=== PATIENT | male | born 1955 | race Hispanic/Latino ===

== ENCOUNTER 2022-02-27 09:26 | Inpatient (IN) | payer BC, MEDICARE ==
[2022-02-27] MEDS ORDERED: VERAPAMIL 5 MG/2 ML INJ ONE (09:33)
[2022-02-27] MEDS ORDERED: NITROGLYCERIN SYRINGE 0 ML ONE (09:33)
[2022-02-27] MEDS ORDERED: HEPARIN/NS 5000 UNIT/500ML 500 ML IR ONE (09:33)
[2022-02-27] MEDS ORDERED: HEPARIN 10,000 UNITS/10 ML VIAL ONE (09:33)
[2022-02-27] MEDS ORDERED: LIDOCAINE PF 100 MG/5 ML (CARDIAC SYRINGE) IV ONE ×2 (09:33→11:30)
[2022-02-27] MEDS ORDERED: ATROPINE 0.1% (1 MG/10 ML) CARDIAC SYRINGE ONE ×2 (09:33→11:30)
[2022-02-27] MEDS ORDERED: PHENYLEPHRINE/NS 1,000 MCG/10 ML SYRINGE (OR USE) IV ONE (09:33)
[2022-02-27] MEDS ORDERED: LIDOCAINE (2%) 20 MG/1 ML VIAL 20 ML MDV INFILTRATI ONE (09:33)
[2022-02-27] MEDS ORDERED: EPINEPHrine 1 MG/10 ML SYRINGE ONE ×3 (09:33→11:30)
[2022-02-27] MEDS ORDERED: SODIUM CHLORIDE 0.9% 1000 ML 1,000 ML IV ONE ×3 (09:44)
--- NOTE | 2022-02-27 09:50 | Emergency Department Report ---
HPI - General Time Seen by Provider: 02/27/22 09:43 - HPI HPI: Room 18 The patient is a 66-year-old male presenting in cardiac arrest. Per EMS the patient was picked up complaining of abdominal pain and during transport went unresponsive. Patient was found to be in PEA and ACLS protocols were initiated. Upon arrival to the ED the patient was intubated by myself using the glide scope. There was a copious amount of black liquid present in oropharynx that required frequent suctioning. After intubation ACLS protocols were continued with eventual return of spontaneous circulation. O- blood was ordered during resuscitation given suspicion for upper GI bleeding. EMS initially called the patient in as a STEMI prior to arrival. EMS reports they sent an EKG however it did not come through so a code STEMI was called prior to the patient's arrival. This was canceled after resuscitation. When family arrives they state that the patient was his normal self 2 days ago until later that evening when he said he was not "feeling good." Patient did not give any specific complaints but states he felt "beat up." Family states the patient began to complain of abdominal p ain and so he was sipping Coca-Cola yesterday and some this morning. Yesterday the patient continued to moan ED Past Medical Hx - Surgical History Additional Surgical History: Bowel perforation leading to bowel resection colostomy reversal. - Family History Family history: no significant - Social History Smoking Status: Current Some Day Smoker Substance Use Type: Alcohol ED Review of Systems ROS: Stated complaint: CARDIAC ARREST Other details as noted in HPI Comment: Unobtainable due to pts medical conditions Physical Exam - Physical Exam Physical Exam: GENERAL: The patient is well-developed well-nourished male lying on stretcher receiving chest compressions from EMS black liquid pouring from his mouth. [] HEENT: Normocephalic. Atraumatic. Oropharynx filled with [place] NECK: Supple. Trachea midline CHEST/LUNGS: No spontaneous respirations. Breath sounds equal bilaterally with bagging after intubation by myself HEART/CARDIOVASCULAR: Initially no heart sounds with asystole on the monitor but normal sinus rhythm after ROSC ABDOMEN: Abdomen is soft. Ventral hernia SKIN: There is no rash. There is no edema. There is no diaphoresis. NEURO: GCS 3 T MUSCULOSKELETAL: There is no evidence of acute injury. RECTAL: Guaiac negative light brown stool ED Course - Consultations Consultation #1: 02/27/22 09:46 GI paged 02/27/22 09:54 Case discussed with node js developer Dr. Polo. good [facility] ED Medical Decision Making - Lab Data Result diagrams: 02/27/22 10:15 02/27/22 10:15 - Radiology Data Radiology results: report reviewed (Chest x-ray), image reviewed (Chest x-ray) interpreted by me: Chest [id number] upper lobe opacities. No pneumothorax. Likely aspiration. [facility] [address] [place] [address] XRay Report Signed Patient: GIA BRIZUELA MR#: [id number] : 1955 Acct:[id number] Age/Sex: 66 / M ADM Date: 02/27/22 Loc: ED Attending Dr: Ordering Physician: ENRIQUE HASSAN MD Date of Service: 02/27/22 Procedure(s): XR chest 1V ap Accession Number(s): [id number] cc: ENRIQUE HASSAN MD Fluoro Time In Minutes: CHEST 1 VIEW 02/27/2022 9:29 AM INDICATION / CLINICAL INFORMATION: Status post cardiac arrest/intubation. COMPARISON: None available. FINDINGS: SUPPORT DEVICES: There is expected positioning of an ET tube with the tip located 6 cm above the harinder. An esophagogastric tube is present with the most distal visualized portion projecting over the gastric fundus. The tip of that tube is not seen. HEART / MEDIASTINUM: No significant abnormality. LUNGS / PLEURA: There are generalized bilateral airspace opacities. No significant pleural effusion. No pneumothorax. ADDITIONAL FINDINGS: No significant additional findings. IMPRESSION: 1. Bilateral airspace opacities are favored to represent edema. Aspiration is also a consideration. 2. Additional findings as above. Signer Name: Robe Mendez MD Signed: 02/27/2022 10:31 AM Workstation Name: [id number] Transcribed By: WILLIE Dictated By: Robe Mendez MD Electronically Authenticated By: Robe Mendez MD Signed Date/Time: 02/27/22 1031 DD/ 1030 TD/TT: - Differential Diagnosis GI bleed, aspiration Critical Care Time: Yes Critical care time in (mins) excluding proc time.: 30 Critical care attestation.: If time is entered above; I have spent that time in minutes in the direct care of this critically ill patient, excluding procedure time. ED Disposition Clinical Impression: Cardiac arrest, Aspiration into airway Disposition: ADMITTED INPATIENT Is pt being admited?: Yes Does the pt Need Aspirin: No Condition: Serious Time of Disposition: 11:30 (Care transferred to hospitalist (Dr. Gamble))
--- NOTE | 2022-02-27 10:09 | Gastroenterology Consultation ---
History of Present Illness - Reason for Consult Consult date: 02/27/22 GI bleed Requesting physician: ENRIQUE HASSAN - History of Present Illness Unable to obtain history as patient is intubated and not responsive No history in chart When I was starting to examine patient, he lost his pulse and therefore I had to move out of the way so CPR can be initiated Obtained/updated/reviewed patient's current medications Medical history, surgical history, social history, allergies, home medications family history -unknown Medications and Allergies Allergies Allergy/AdvReac Type Severity Reaction Status Date / Time Unable to Assess Allergy Verified 02/27/22 10:11 Active Meds: Active Medications Sodium Chloride (Nacl 0.9% 1000 Ml) 1,000 mls @ 999 mls/hr IV ONCE ONE Stop: 02/27/22 10:44 Sodium Chloride (Nacl 0.9% 1000 Ml) 1,000 mls @ 999 mls/hr IV ONCE ONE Stop: 02/27/22 10:44 Sodium Chloride (Nacl 0.9% 1000 Ml) 1,000 mls @ 999 mls/hr IV ONCE ONE Stop: 02/27/22 10:44 Review of Systems - Review of Systems ROS unobtainable: due to endotracheal tube, due to mental status Exam - Constitutional General appearance: other - Respiratory Respiratory effort: other - Cardiovascular Rhythm: other (lost pulse during exam) - Gastrointestinal General gastrointestinal: Present: distended - Neurologic Neurological: other (intubated, not responsive) - Labs CBC & Chem 7: 02/27/22 10:15 02/27/22 10:15 Assessment and Plan I examined the output from the gastric tube, it is dark brown. No blood, does not appear to be an active GI bleed on my exam. Additionally there is no melena per nurses therefore I do not suspect primary GI blood loss as a source of symptoms. Still awaiting labs imaging etc. Prudent to have patient on PPI drip just in case I will continue to follow with you - Patient Problems (1) Coffee ground emesis Current Visit: No Status: Acute
[2022-02-27] MEDS ORDERED: NORepinephrine/NS 8 MG-250 ML 8 MG/250 ML INFUS..BTL IV ONE ×2 (10:19)
[2022-02-27] MEDS ORDERED: PANTOPRAZOLE 40 MG INJ IV ONE (10:24)
[2022-02-27 10:34] LABS: ABG Base Excess -17.7 mmol/L (-2.0-3.0); ABG HCO3 14.9 mmol/L (20.0-26.0); ABG Methemoglobin 0.5 % (0.0-1.5); ABG Oxygen Saturation 99.4 % (95.0-99.0); ABG PCO2 68.2 mm Hg
--- NOTE | 2022-02-27 10:36 | XRay Report ---
CHEST 1 VIEW 02/27/2022 9:29 AM INDICATION / CLINICAL INFORMATION: Status post cardiac arrest/intubation. COMPARISON: None available. FINDINGS: SUPPORT DEVICES: There is expected positioning of an ET tube with the tip located 6 cm above the niraj na. An esophagogastric tube is present with the most distal visualized portion projecting over the ga stric fundus. The tip of that tube is not seen. HEART / MEDIASTINUM: No significant abnormality. LUNGS / PLEURA: There are generalized bilateral airspace opacities. No significant pleural effusion. No pneumothorax. ADDITIONAL FINDINGS: No significant additional findings. IMPRESSION: 1. Bilateral airspace opacities are favored to represent edema. Aspiration is also a consideration. 2. Additional findings as above. Signer Name: Robe Mendez MD Signed: 02/27/2022 10:31 AM Workstation Name: [email or web address]
[2022-02-27 10:39] LABS: Hematocrit 41.3 % (35.5-45.6); Mean Corpuscular HGB Conc 32 % (32-34); Mean Corpuscular Volume 97 fl (84-94); Red Blood Count 4.24 M/mm3 (3.65-5.03); Red Cell Distribution Width 14.5 % (13.2-15.2)
[2022-02-27 10:42] LABS: INR 1.98 (0.87-1.13)
[2022-02-27] MEDS ORDERED: PIPERACIL/TAZOBACTA 4.5/NS 100 4.5 GM/100 ML VIAL IV ONE (10:48)
[2022-02-27 10:49] LABS: Creatine Kinase MB 4.6 ng/mL (0.0-4.0)
[2022-02-27 10:51] LABS: Albumin 1.9 g/dL (3.9-5); Calcium 7.8 mg/dL (8.4-10.2)
[2022-02-27 10:52] LABS: Partial Thromboplastin Time 78.8 Sec. (24.2-36.6)
[2022-02-27 10:59] LABS: ABG PH 6.957 pH Units (7.350-7.450); ABG PO2 333.1 mm Hg (80.0-90.0)
[2022-02-27] MEDS ORDERED: PANTOPRAZOLE 80 MG in SODIUM CHLORIDE 0.9% 100 ML IV SCH (11:00)
[2022-02-27] MEDS ORDERED: SODIUM BICARB 8.4% 50 MEQ/50 ML SYRINGE IV ONE ×3 (11:01→11:30)
[2022-02-27] MEDS ORDERED: DOPamine 800 MG/D5W 250ML 800 MG/250 ML BAG IV ONE (11:29)
[2022-02-27] MEDS ORDERED: CALCIUM CHLORIDE 1,000 MG/10 ML SYRINGE IV ONE ×2 (11:30)
[2022-02-27] MEDS ORDERED: AMIODARONE 150 MG/3 ML INJ IV ONE (11:30)
[2022-02-27 11:41] LABS: Band Neutrophils # (Manual) 1.4 K/mm3; Basophils % (Manual) 0 % (0.0-1.8); Eosinophils % (Manual) 0 % (0.0-4.3); Total Cells Counted 100
[2022-02-27 11:42] LABS: Anisocytosis 1+; Platelet Count 192 K/mm3 (140-440); Platelet Estimate Consistent w Auto
[2022-02-27] MEDS ORDERED: HYDROmorphone 0.5 MG/0.5 ML INJ IV PRN (12:00)
[2022-02-27] MEDS ORDERED: VANCOMYCIN 1,500 MG in SODIUM CHLORIDE 0.9% 500 ML 500 ML IV ONE (12:00)
[2022-02-27] MEDS ORDERED: CEFEPIME/NS 2 GM/100 ML 2 GM/100 ML BAG IV SCH ×2 (12:00→13:00)
[2022-02-27] MEDS ORDERED: IBUPROFEN 600 MG TAB PO PRN (12:00)
[2022-02-27] MEDS ORDERED: ALBUTEROL 2.5 MG/3 ML NEBU IH PRN (12:00)
[2022-02-27] MEDS ORDERED: oxyCODONE /ACETAMINOPHEN 5-325MG TAB PO PRN (12:00)
[2022-02-27] MEDS ORDERED: SODIUM CHLORIDE 0.9% 1000 ML IV SOLN IV SCH (12:00)
[2022-02-27] MEDS ORDERED: VANCOMYCIN PHARMACY TO DOSE IV SCH (12:00)
--- NOTE | 2022-02-27 12:00 | History and Physical Report ---
History of Present Illness Chief complaint: Unresponsive History of present illness: 66 YO Male with Nicotine Dependence, ETOH Dependence presents ED for evaluation. Patient is intubated and on ventilatory support at time of evaluation is unable to provide history. Patient here provided by EMS staff, staff, as well as patient's family who presented at bedside for interview. As per family patient was in his usual state of health approximate 2 days ago but complained of "not feeling good". EMS was notified today for the aforementioned symptoms. Upon arrival the patient was found to be in distress and transported to [facility] for further care and evaluation of the aforementioned symptoms. During transport the patient found to be in PEA arrest. Patient initiated on ACLS protocol with return of spontaneous circulation rhythm and was also intubated in the field and subsequently transported to [facility] for further care and evaluation of the aforementioned symptoms. The patient was seen and evaluated in the emergency department. All lab and imaging studies reviewed. Patient found to have copious amounts of black liquid in the oropharynx and experienced aspiration of oral contents into the lung. Patient found to have a pulse oximetry of 86% on room air which is consistent with acute approximate respiratory failure. Patient found to have sepsis complicated by shock, aspiration pneumonia, metabolic acidosis, toxic metabolic encephalopathy, as well as suspected upper GI bleed. Patient admitted to ICU due to increased risk of worsening symptoms and for medical stabilization. Critical care team consulted in ED, GI team consulted in ED. No prior admission for review. No medication listed at time of admission for reconciliation. Advanced care planning conducted in ED. Past History Past Medical History: other (See HPI) Past Surgical History: bowel surgery Social history: single, alcohol abuse. denies: smoking Family history: hypertension Medications and Allergies Allergies Allergy/AdvReac Type Severity Reaction Status Date / Time Unable to Assess Allergy Verified 02/27/22 10:11 Active Meds: Active Medications NORepinephrine/NS 8 MG-250 ML (Norepinephrine/Ns 8 Mg-250 Ml (Double Conc)) 8 mg in 250 mls @ 13.608 mls/hr IV TITRATE ONE; Protocol Stop: 02/28/22 04:41 Last Admin: 02/27/22 10:30 Dose: 0.1 mcg/kg/min, 13.608 mls/hr Pantoprazole Sodium 80 mg/ (Sodium Chloride) 100 mls @ 10 mls/hr IV DIRECT CHRIS Dopamine HCl/Dextrose (Dopamine 800 Mg/D5w 250ml) 800 mg in 250 mls @ 2.722 mls/hr IV TITR ONE; Protocol Stop: 03/03/22 07:19 Last Admin: 02/27/22 11:46 Dose: 2 mcg/kg/min, 2.722 mls/hr Review of Systems ROS unobtainable: due to endotracheal tube, due to mental status Exam - Constitutional Vitals: Temp Pulse Resp BP Pulse Ox 111 H 78/42 94 02/27/22 09:50 02/27/22 09:50 02/27/22 09:50 General appearance: Present: severe distress - EENT Eyes: Present: miosis ENT: hearing decreased - Neck Neck: Present: supple - Respiratory Respiratory effort: labored Respiratory: bilateral: diminished, rhonchi - Cardiovascular Heart Sounds: Present: S1 & S2. Absent: rub, click - Extremities Extremities: pulses intact Peripheral Pulses: abnormal (Capillary refill greater than 3.5 seconds) - Abdominal General gastrointestinal: Present: soft, non-tender, non-distended, normal bowel sounds Male genitourinary: Present: normal - Integumentary Integumentary: Present: clear, dry, clammy, decreased turgor - Musculoskeletal Musculoskeletal: generalized weakness - Psychiatric Psychiatric: no appropriate mood/affect, no intact judgment & insight, no memory intact - Neurologic Neurologic: CNII-XII intact, no focal deficits, moves all extremities, no gait normal HEART Score - HEART Score Troponin: Troponin T 0.036 ng/mL (0.00-0.029) H 02/27/22 10:15 Results - Labs CBC & Chem 7: 02/27/22 10:15 02/27/22 10:15 Labs: Abnormal lab results 02/27/22 02/27/22 02/27/22 Range/Units 10:05 10:15 10:15 WBC 12.5 H (4.5-11.0) K/mm3 MCV 97 H (84-94) fl PT (12.2-14.9) Sec. INR (0.87-1.13) APTT (24.2-36.6) Sec. ABG pH 6.957 L* (7.350-7.450) pH Units ABG pO2 333.1 H (80.0-90.0) mm Hg ABG HCO3 14.9 L (20.0-26.0) mmol/L ABG O2 Saturation 99.4 H (95.0-99.0) % ABG Base Excess -17.7 L (-2.0-3.0) mmol/L ABG Hemoglobin 13.4 L (14.0-18.0) gm/dl Sodium (137-145) mmol/L Chloride (98-107) mmol/L Carbon Dioxide (22-30) mmol/L BUN (9-20) mg/dL Creatinine (0.8-1.3) mg/dL Lactic Acid (0.7-2.0) mmol/L Calcium (8.4-10.2) mg/dL AST (5-40) units/L ALT (7-56) units/L CK-MB (CK-2) (0.0-4.0) ng/mL Troponin T (0.00-0.029) ng/mL Total Protein (6.3-8.2) g/dL Albumin (3.9-5) g/dL Crossmatch See Detail 02/27/22 02/27/22 02/27/22 Range/Units 10:15 10:15 10:15 WBC (4.5-11.0) K/mm3 MCV (84-94) fl PT 25.6 H (12.2-14.9) Sec. INR 1.98 H (0.87-1.13) APTT 78.8 H* (24.2-36.6) Sec. ABG pH (7.350-7.450) pH Units ABG pO2 (80.0-90.0) mm Hg ABG HCO3 (20.0-26.0) mmol/L ABG O2 Saturation (95.0-99.0) % ABG Base Excess (-2.0-3.0) mmol/L ABG Hemoglobin (14.0-18.0) gm/dl Sodium 147 H (137-145) mmol/L Chloride 97.3 L (98-107) mmol/L Carbon Dioxide 11 L (22-30) mmol/L BUN 59 H (9-20) mg/dL Creatinine 2.2 H (0.8-1.3) mg/dL Lactic Acid 23.50 H* (0.7-2.0) mmol/L Calcium 7.8 L (8.4-10.2) mg/dL AST 1517 H (5-40) units/L ALT 1726 H (7-56) units/L CK-MB (CK-2) 4.6 H (0.0-4.0) ng/mL Troponin T 0.036 H (0.00-0.029) ng/mL Total Protein 3.8 L (6.3-8.2) g/dL Albumin 1.9 L (3.9-5) g/dL Crossmatch Assessment and Plan - Patient Problems (1) Sepsis Current Visit: Yes Status: Acute Qualifiers: Acute renal failure type: with acute tubular necrosis Severe sepsis shock status: with septic shock Plan to address problem: Sepsis protocol: Chest x-ray, CBC, CMP, urinalysis, IV antibiotic therapy, IV fluid resuscitation therapy, IV pressor support, maintain mean arterial pressure greater than equal to 65, serial lactic acid level, blood culture, monitor fluid balance. The high probability of a clinically significant, sudden or life threatening deterioration of the [cardiac, pulmonary, renal, neuro, infectious disease] system(s) required my full and direct attention, intervention and personal management. The aggregate critical care time was [95] minutes. This time is in addition to time spent performing reported procedures but includes the following: [x] Data Review and interpretation [x] Patient assessment and monitoring of vital signs [x] Documentation [x] Medication orders and management (2) Aspiration pneumonia Current Visit: Yes Status: Acute Plan to address problem: Chest x-ray, IV antibiotic therapy, supplemental oxygen, pulse oximetry, nebulizer therapy. (3) Acute hypoxemic respiratory failure Current Visit: Yes Status: Acute Plan to address problem: Chest x-ray, supplemental oxygen, pulse oximetry. Patient intubated and placed on ventilatory support at this time. Wean vent as tolerated, daily sedation ho liday, daily spontaneous breathing trial, arterial blood gas daily. (4) Metabolic acidosis Current Visit: Yes Status: Acute Plan to address problem: BMP, IV fluid resuscitation therapy, treat sepsis, IV bicarbonate therapy, repeat BMP in AM. Serial lactic acid level. (5) Toxic metabolic encephalopathy Current Visit: Yes Status: Acute Plan to address problem: Treat sepsis, IV fluid resuscitation therapy, supportive care. (6) GI bleed Current Visit: Yes Status: Acute Plan to address problem: GI team consulted in ED, PPI therapy, further care as per GI team, monitor CBC (7) Shock liver Current Visit: Yes Status: Acute Plan to address problem: LFT, repeat LFT in am, treat sepsis. (8) Cardiac arrest Current Visit: Yes Status: Acute Plan to address problem: Pt treated IAW ACLS protocol with return of perfusing cardiac rhythm. (9) EtOH dependence Current Visit: Yes Status: Acute Plan to address problem: CIWA protocol, thiamine, folic acid, multivitamin daily. (10) DVT prophylaxis Current Visit: Yes Status: Acute Plan to address problem: SCD to BLE while in bed. (11) Advance care planning Current Visit: Yes Status: Acute Plan to address problem: Disease education conducted, care plan discussed, prognosis discussed, Pt family acknowledges undeerstanding and agreement with care plan. +30 minutes (12) Preventative health care Current Visit: Yes Status: Acute Plan to address problem: Pt family counseled regarding ETOH abstinence, and follow up with primary care physician for all age and risk factor appropriate screening tests. +30 minutes
[2022-02-27] MEDS ORDERED: SODIUM BICARB 8.4% 50 MEQ/50 ML SYRINGE IV SCH (12:06)
[2022-02-27] MEDS ORDERED: LORazepam 2 MG/ML VIAL IV PRN ×3 (12:08)
--- NOTE | 2022-02-27 12:10 | Procedure Note ---
Date of procedure: 02/27/22 Pre-op diagnosis: sepsis Post-op diagnosis: same Procedure: Right internal jugular vein triple-lumen catheter placement After informed consent was obtained a timeout was taken with the patient's nurse at bedside to verify the correct patient, correct procedure, and the correct operative site. Local anesthesia obtained with 1% lidocaine. Ultrasound was used to localize the right internal jugular vein without difficulty. The Seldinger technique was utilized to access the right internal jugular vein with a seeker needle under ultrasound guidance. A guidewire was then advanced via the seeker needle into the right internal jugular vein without difficulty. The seeker needle was subsequently removed. A scalpel was used to incise the skin at the insertion site. A dilator was then passed over the guidewire into the right internal jugular vein and subsequently removed. A preflush triple-lumen catheter was then advanced over the guidewire into the right internal jugular vein and the guidewire subsequently removed. All 3 ports flush and drawl with ease. Estimated blood loss minimal. Complications none. Specimens none. Postoperative chest x-ray reveals triple-lumen catheter in expected position without evidence of pneumothorax. Anesthesia: local Surgeon: ROSEY COATS Estimated blood loss: minimal Pathology: none Condition: critical Disposition: ICU
[2022-02-27] MEDS ORDERED: [UNRECOGNIZED DRUG - OTHER] IV SCH (13:00)
[2022-02-27] MEDS ORDERED: THIAMINE 100 MG, FOLIC ACID 1 MG, MULTIPLE VITAMIN INJ, ADULT 10 ML in SODIUM CHLORIDE ... IV ONE (13:00)
[2022-02-27] MEDS ORDERED: THIAMINE 100 MG TAB PO ONE (13:00)
[2022-02-27] MEDS ORDERED: MULTIVITAMINS ,THERAPEUTIC TAB PO ONE (13:00)
[2022-02-27] MEDS ORDERED: MIDAZOLAM IV SCH (13:00)
--- NOTE | 2022-02-27 13:16 | XRay Report ---
XR chest 1V ap INDICATION / CLINICAL INFORMATION: central line placement. COMPARISON: Radiograph from earlier same day. FINDINGS: SUPPORT DEVICES: Right IJ central venous catheter projects over the proximal SVC. Enteric catheter an d endotracheal tube are stable. HEART /PULMONARY VASCULATURE: Unchanged. LUNGS / PLEURA: No significant change in bilateral pulmonary opacities. No sizable pleural effusion. No pneumothorax. IMPRESSION: Right IJ central venous catheter projects over the proximal SVC. No evidence of complication. Signer Name: Christopher Renteria MD Signed: 02/27/2022 1:12 PM Workstation Name: [id number]
[2022-02-27] MEDS ORDERED: SODIUM CHLORIDE 0.9% IV SCH (14:00)
[2022-02-27] MEDS ORDERED: VANCOMYCIN IV SCH (14:00)
--- NOTE | 2022-02-27 15:19 | Event Note ---
Date: 02/27/22 A CODE BARBARA was called. I presented the patient bedside. The patient was found to be in asystolic arrest. The patient treated in accordance with ACLS protocol without return of perfusing cardiac rhythm. On physical exam the patient was found to have absent brainstem reflexes. Patient pupils are fixed and dilated on neurologic exam. Pulmonary exam the patient was found to have absent breath sounds. Cardiac exam the patient was found to have absent heart sounds. Patient was found to have asystole on athletic monitor. Patient pronounced at 1507 hrs. Patient family notified. Bereavement services offered. The high probability of a clinically significant, sudden or life threatening deterioration of the [cardiac, pulmonary, neuro, renal, infectious disease] system(s) required my full and direct attention, intervention and personal management. The aggregate critical care time was [60] minutes. This time is in addition to time spent performing reported procedures but includes the following: [x] Data Review and interpretation [x] Patient assessment and monitoring of vital signs [x] Documentation [x] Medication orders and management
--- NOTE | 2022-02-27 15:19 | Death Summary ---
Summary - Providers Consults: 02/27/22 09:53 Consult to Physician [CONS] Urgent Comment: Consulting Provider: MITCHELL ALMONTE Physician Instructions: Reason For Exam: Possible upper GI bleed/status post cardiac 02/27/22 12:54 Consult to Physician [CONS] Routine Comment: Consulting Provider: KLEBER MORRISON Physician Instructions: Reason For Exam: critical care Attending: ROSEY COATS - summary Date of admission: 02/27/22 12:00 Date of : 02/27/22 Disposition: 66 YO Male with Nicotine Dependence, ETOH Dependence presents ED for evaluation. Patient is intubated and on ventilatory support at time of evaluation is unable to provide history. Patient here provided by EMS staff, staff, as well as patient's family who presented at bedside for interview. As per family patient was in his usual state of health approximate 2 days ago but complained of "not feeling good". EMS was notified today for the aforementioned symptoms. Upon arrival the patient was found to be in distress and transported to [facility] for further care and evaluation of the aforementioned symptoms. During transport the patient found to be in PEA arrest. Patient initiated on ACLS protocol with return of spontaneous circulation rhythm and was also intubated in the field and subsequently transported to [facility] for further care and evaluation of the aforementioned symptoms. The patient was seen and evaluated in the emergency department. All lab and imaging studies reviewed. Patient found to have copious amounts of black liquid in the oropharynx and experienced aspiration of oral contents into the lung. Patient found to have a pulse oximetry of 86% on room air which is consistent with acute approximate respiratory failure. Patient found to have sepsis complicated by shock, aspiration pneumonia, metabolic acidosis, toxic metabolic encephalopathy, as well as suspected upper GI bleed. Patient admitted to ICU due to increased risk of worsening symptoms and for medical stabilization. Critical care team consulted in ED, GI team consulted in ED. No prior admission for review. A CODE BLUE was called. I presented the patient bedside. The patient was found to be in asystolic arrest. The patient treated in accordance with ACLS protocol without return of perfusing cardiac rhythm. On physical exam the patient was found to have absent brainstem reflexes. Patient pupils are fixed and dilated on neurologic exam. Pulmonary exam the patient was found to have absent breath sounds. Cardiac exam the patient was found to have absent heart sounds. Patient was found to have asystole on night monitor. Patient pronounced at 1507 hrs. Patient family notified. Bereavement services offered. - Final diagnosis (1) Sepsis Qualifiers: Acute renal failure type: with acute tubular necrosis Severe sepsis shock status: with septic shock Note: Final diagnosis: (2) Aspiration pneumonia Note: Final diagnosis: (3) Acute hypoxemic respiratory failure Note: Final diagnosis: (4) Metabolic acidosis Note: Final diagnosis: (5) Toxic metabolic encephalopathy Note: Final diagnosis: (6) GI bleed Note: Final diagnosis: (7) Shock liver Note: Final diagnosis: (8) Cardiac arrest Note: Final diagnosis: (9) EtOH dependence Note: Final diagnosis: (10) DVT prophylaxis Note: Final diagnosis: (11) Advance care planning Note: Final diagnosis: (12) Preventative health care Note: Final diagnosis:
[2022-02-27 18:28] LABS: Chol/HDL Ratio 2.02 %
[2022-02-27 18:58] VITALS: BP 80/52
[2022-02-28] MEDS ORDERED: FOLIC ACID 1 MG TAB PO SCH (10:00)
--- NOTE | 2022-02-28 17:33 | Electrocardiograph Report ---
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
== END 2022-02-27 15:07 | DRG 871 ==
LOC: ED 09:26 → CC1 12:00
PROVIDERS: ADMIT Internal Medicine; ATTEND Internal Medicine
PROC: 30233N1 Transfusion of Nonautologous Red Blood Cells into Peripheral Vein, Percutaneous Approach (ICD-10-PCS; principal; 2022-02-27)
PROC: 02HV33Z Insertion of Infusion Device into Superior Vena Cava, Percutaneous Approach (ICD-10-PCS; 2022-02-27)
PROC: B548ZZA Ultrasonography of Superior Vena Cava, Guidance (ICD-10-PCS; 2022-02-27)
PROC: 4A033R1 Measurement of Arterial Saturation, Peripheral, Percutaneous Approach (ICD-10-PCS; 2022-02-27)
PROC: 5A1935Z Respiratory Ventilation, Less than 24 Consecutive Hours (ICD-10-PCS; 2022-02-27)
PROC: 0BH17EZ Insertion of Endotracheal Airway into Trachea, Via Natural or Artificial Opening (ICD-10-PCS; 2022-02-27)
DX: A41.9 Sepsis, unspecified organism (principal); G92.8 Other toxic encephalopathy; J69.0 Pneumonitis due to inhalation of food and vomit; J96.01 Acute respiratory failure with hypoxia; N17.0 Acute kidney failure with tubular necrosis; R65.21 Severe sepsis with septic shock; K72.00 Acute and subacute hepatic failure without coma; K92.2 Gastrointestinal hemorrhage, unspecified; I46.9 Cardiac arrest, cause unspecified; F17.200 Nicotine dependence, unspecified, uncomplicated; F10.20 Alcohol dependence, uncomplicated; Y90.9 Presence of alcohol in blood, level not specified; Z82.49 Family history of ischemic heart disease and other diseases of the circulatory system
CPT/HCPCS: 36415; 36600; 71045; 80053; 80061; 80320; 82140; 82271; 82550; 82553; 82803; 84484; 85007; 85025; 85610; 85730; 86850; 86900; 86901; 86920; 87040; 93005; 94002; 96374; 96375; 99285; G0378; J1815; J2354; J3490; C9113; G0480; J0171; J0282; J0461; J0692; J1265; J1644; J2001; J2370; J2543; J3411; J7030; P9016